=== PATIENT | male | born 1940 | race Caucasian/White ===

== ENCOUNTER → 2016-07-14 | Outpatient (CLI) | payer MEDICARE, OTHER ==
[~2016-07-14] MED LIST: ASPI-611 PO; METF-200 PO; METO25TA41 PO; MULT-850 PO; OMEG1CAP20 PO; TAMS0.4C20 PO; TRIA1TAB72 PO
[2016-07-14 08:57] LABS: BASOPHILS % (AUTO) 0.5 % (0-2); EOSINOPHILS # (AUTO) 0.1 T/MM3 (0-0.5); EOSINOPHILS % (AUTO) 2.3 % (0-4); HCT - HEMATOCRIT 44.6 % (41-53); HGB - HEMOGLOBIN 15.9 GM/DL (13.5-17.5); IMMATURE GRANULOCYTE # (AUTO) 0.01 T/MM3 (0.00-0.03); IMMATURE GRANULOCYTE % (AUTO) 0.2 % (0.0-0.5); LYMPHOCYTES # (AUTO) 1.5 T/MM3 (1-4.8); LYMPHOCYTES % (AUTO) 26.6 % (23-45); MEAN CORPUSCULAR HGB 30.9 UUG (26-34); MEAN CORPUSCULAR HGB CONC(MCHC 35.7 GM/DL (31-37); MEAN CORPUSCULAR VOLUME 86.6 UM3 (80-100); MEAN PLATELET VOLUME 11.6 UM3 (9.4-12.4); MONOCYTES # (AUTO) 0.5 T/MM3 (0-0.8); MONOCYTES % (AUTO) 8.8 % (0-9.0); NEUTROPHILS #(AUTO)-ABSOLUTE 3.5 T/MM3 (1.8-7.7); NEUTROPHILS % (AUTO) 61.6 % (33-66); RED BLOOD COUNT 5.15 M/MM3 (4.50-5.90); WBC - WHITE BLOOD COUNT 5.7 T/MM3 (4.5-11.0)
[2016-07-14 09:02] LABS: HEMOGLOBIN A1C 6.1 % (6.1-7.9)
[2016-07-14 09:09] LABS: ALBUMIN 4.4 G/DL (3.5-5.0); ALBUMIN/GLOBULIN RATIO 1.2 RATIO (1.1-2.2); ALKALINE PHOSPHATASE 54 U/L (38-126); ALT (SGPT) 38 U/L (21-72); ANION GAP 12 MEQ/L (5-15); AST (SGOT) 29 U/L (17-59); BUN/CREATININE RATIO 21 RATIO (6-26); CALCIUM 9.4 MG/DL (8.4-10.2); CHLORIDE 103 MEQ/L (98-107); CO2 - CARBON DIOXIDE 24 MEQ/L (22-30); GLOMERULAR FILTRATION RATE 72; GLUCOSE 142 MG/DL (75-110); POTASSIUM 4.2 MEQ/L (3.6-5); SODIUM 139 MEQ/L (134-144); TOTAL PROTEIN 8.2 G/DL (6.3-8.2)
[2016-07-15 00:40] LABS: LDL CHOLESTEROL,CALCULATED 70.2 (66-159); VLDL CHOLESTEROL 30.8 MG/DL (0-28)
== END ==
LOC: LAB 08:32
PROVIDERS: ATTEND Nurse Practitioner
DX: E11.9 Type 2 diabetes mellitus without complications (principal); R97.20 Elevated prostate specific antigen [PSA]; E78.2 Mixed hyperlipidemia; I10 Essential (primary) hypertension
CPT/HCPCS: 36415; 80053; 80061; 83036; 84153; 85025